=== PATIENT | female | born 1950 | race Caucasian/White ===

== ENCOUNTER 2021-11-01 07:21 | Day surgery (SDC) | payer MEDICARE, SELFPAY ==
--- NOTE | 2021-11-01 | OV_PTH ---
PATIENT: AIXA MONTALVO [place] [facility] [id number] AGE/SX: 71/F ROOM: RE11/01/[address]: Dr. Heike Solis, MDDOB: 1950 BED: DIS: 11/01/2021 SPEC #: [id number] RECD: 11/01/21 14:06 STATUS: ОЛЕГ LUCA #: [id number] EBONY: 11/01/21 00:[address]: Heike Solis DEPT: SURGICAL PATHOLOGY RECD BY: Jose Maria Sheffield ENTERED: 11/01/21 14:06 SP TYPE: OVARY OTHR DR: Dr. Jairo Engel MD Tissues: A - Endometrium, NOS B - Ovary, NOS Procedures: Surgery Specimen Level IV Surgery Specimen Level V HEADER OPERATION: Hysteroscopy, D & C Symphion, Laparoscopic salpingo-oophorectomy PRE-OP DIAGNOSIS: Elevated testosterone levels, endometrial polyp TISSUE SUBMITTED: A ? Endometrial polyp, B ? Bilateral fallopian tubes, ovaries MICROSCOPIC DIAGNOSIS A. Endometrial polyp, D & C: Simple cystic hyperplasia without atypia. B. Bilateral fallopian tubes and ovaries, bilateral salpingo-oophorectomy: Bilateral fallopian tubes - no pathologic diagnosis. One ovary ? mesothelial inclusion cyst. 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 SJ:nancy 11/02/2021 COMMENT Case has been reviewed in consultation with Dr. Montero who concurs with the above diagnosis. IDC:AM MICROSCOPIC DESCRIPTION Slides are reviewed. GROSS DESCRIPTION A - Received in fixative is one container labeled with the patient's name and designated endometrial polyp. The specimen consists of multiple irregular fragments of finnegan-pink soft tissue that in aggregate measure 5 x 3 x 0.3 cm. The specimen is totally submitted in two cassettes. B - Received in fixative is one container labeled with the patient's name and designated bilateral fallopian tubes and ovaries. The specimen consists of bilateral fallopian tubes and ovaries. One of the fallopian tubes show adjacent attached ovary. The second fallopian tube shows separate fallopian tube and ovary. One of the fallopian tubes measure 6 cm in length and 0.5 cm in diameter. The fimbrial end is identified. Tubo-ovarian adhesions are not seen. Sections reveal unremarkable cut surfaces. The adjacent ovary measures 2 x 1.5 x 0.7 cm. Sections reveal unremarkable cut surfaces. The second fallopian tube measures 4.5 cm in length and 0.5 cm in diameter. The fimbrial end is identified. Sections reveal unremarkable cut surfaces. The second ovary measures 2 x 1.5 x 1 cm. Sections reveal unremarkable cut surfaces. A tubular segment of tissue is also noted adjacent to the ovary measuring 1 cm in length and 0.5 cm in diameter. Floral Assistant sections are submitted in four cassettes as follows: 1 & 2 - fallopian tube and adjacent ovary (1 - fallopian tube, 2 - adjacent ovary), 3 - second fallopian tube, 4??second ovary and tubular segment of tissue. / LYNNE:nancy 11/01/2021 TC:1 CPT: 78617 x2, 91719
[2021-11-01 07:53] VITALS: BP 111/55; PULSE 72; RESP 16; TEMP 36.5; O2SAT 99; BMI 33.0
[2021-11-01] MEDS: Lactated Ringers 1,000 ML 15 ML IV (08:17)
--- NOTE | 2021-11-01 09:09 | PCM.PN.BLA ---
Progress Note I have re-examined the patient. There are no clinical changes since date of exam.
[2021-11-01] MEDS: Bupivacaine Mpf 0.5% 30 ML VIAL (09:30)
--- NOTE | 2021-11-01 10:09 | EX.PCM.DISCH ---
Discharge Instructions Procedure Other Diet Discharge Diet: No restrictions Activity May resume sexual activity in: 2 weeks Lifting Restrictions: 20-25 lbs Dressing / Incision Call your doctor if your incision/area has: Continuous Slow Oozing, Sudden Increased Bleeding, Increased Pain/ Swelling, Increased Redness, Foul Smelling Discharge and Swelling at the incision site Call your doctor if you observe: Fever of 101 or Higher, Inability to urinate, Inability to have a bowel movement, Using more than 1 pad per hour and Uncontrolled pain Additional Dressing/Incision Instructions:: You have skin glue over your incision sites, do not pick off. You may shower and let the soap and water run over the incision sites and dab dry. Follow Up Care Please Follow Up With: Heike Solis MD When: 1-2 weeks post OP if you need an appointment please call [phone] Test Results: Test results from this visit will be discussed in further detail at your follow-up appointment, if applicable. Discharge Plan Admission Attending Provider: Heike Solis Primary Care Provider: Jairo Engel Discharge Orders/Prescriptions Prescriptions: No Action Allery Shot 0 mg OTHER TU RF: 0 lisinopril 20 mg Tablet 20 mg PO DAILY RF: 0 lovastatin 40 mg Tablet 40 mg PO QPM RF: 0 pramipexole 0.5 mg Tablet 0.5 mg PO TID RF: 0 citalopram [Celexa] 20 mg Tablet 20 mg PO DAILY RF: 0 calcipotriene 0.005 % Cream 1 applic TOPICAL PRN PRN (Reason: psoriasis) RF: 0 buspirone 10 mg Tablet 10 mg PO BID RF: 0 clotrimazole-betamethasone [Lotrisone] 1-0.05 % Cream 1 applic TOPICAL PRN PRN (Reason: psoriasis) RF: 0 metoprolol tartrate 50 mg Tablet 25 mg PO BID RF: 0 felodipine 10 mg Tablet Extended Release 24 Hr 10 mg PO DAILY RF: 0 furosemide 20 mg Tablet 20 mg PO DAILY RF: 0 carbidopa-levodopa 25-100 mg Tablet 1 tab PO TID RF: 0 cholecalciferol (vitamin D3) [Vitamin D3] 25 mcg (1,000 unit) Capsule 25 mcg PO DAILY RF: 0 magnesium oxide 400 mg magnesium Capsule 400 mg PO BID RF: 0 Probiotic 3 billion cell Capsule 3,000 mmu cells PO DAILY RF: 0 Referrals / Follow Up: Jairo Engel MD [Primary Care Provider] - Disposition Disposition (needs filled in before D/C Order can be placed): Home, Self Care
--- NOTE | 2021-11-01 10:10 | PCM.OPRPT ---
Problems Associated Problem List Diagnoses (1) Endometrial polyp: (2) Elevated testosterone level in female: Report of Operation Date of Procedure: 11/01/21 Pre-Operative Diagnosis: Endometrial polyp, Elevated testosterone levels in female, Post-Operative Diagnosis: same, Fibroid uterus. Surgery/Procedure Performed:: Hysteroscopy, D&C, Polypectomy, Laparoscopic BSO Description of Surgical Findings:: Fundal endometrial polyp, Bilateral ovaries and tubes appear normal. No mass appreciated in Posterior culdesac as demonstrated on MRI Surgeon: Heike Solis nuclear officer: Navarro Duran Type of Anesthesia: General and Local Special Medications: 0.5% marcaine Specimen's removed: bilateral tubes and ovaries , endometrial polyp Drains: none Estimated Blood Loss (mL): 20 Fluids Replaced: 700 Description of Procedure: After informed consent was obtained patient was taken to the operating room she was placed in supine position she was given anesthesia. She was then placed in the [facility] stirrups and she was prepped and draped in normal sterile fashion. Bladder was drained prior to the start of procedure approximately 150cc of clear yellow urine was expelled. At this time attention was turned to the vaginal portion where weighted speculum placed at posterior fornix vagina single-tooth tenaculum was used to gently grasp the internal the cervix. uterus was gently sounded to approximately 10cm. Hysteroscopy performed using normal saline distention medium. Upon hysteroscopy endometrial polyp noted at the fundal aspect. Both tubal ostia were visualized and normal. Otherwise cavity appeared to be normal and atrophic. At this time the symphion resecting device was used to remove the endometrial polyp. At this time hysteroscopy and polypectomy was complete. The scope was removed. Fluid deficit was approximately 100 cc. Uterine manipulator was placed without difficulty. Tenaculum removed. Legs then placed in parallel with the abdomen the tenaculum and the weighted speculum were removed. 2 towel clamps were placed superior to umbilicus. After Marcaine was injected superior to umbilicus a small incision was made and a 5 mm trocar was placed under direct visualization. CO2 gas was used to insufflate the intra-abdominal cavity. Upon inspection no gross abnormalities uterus tubes and ovaries appeared to be normal. No mass noted in posterior culdesac or on rectum noted. small amount of peritoneal free fluid noted. At this time then the LLQ port was placed again Marcaine was injected small incision was made a knife and the 5 mm trocar was placed. this was repeated on right side. At this time then tubes were traced back to the fimbriated ends. ureters were visualized. Ligasure was used to coagulate and ligate along IP ligament, uteroovarian and the mesosalpinx bilaterally until ovaries and tubes removed completely. Good hemostasis was appreciated. The umbilical incision was extended to 10mm port and endocatch bag placed- specimens collected and removed. small oozing noted from uteroovarain pedicle on left- debi placed and Surgicell. good hemostasis appreciated. The rizwan wall was then used to closed fascia of umbilical incision using 0-vicryl sutre. At this time procedure was deemed complete successful. The gas was desufflated on from the intra-abdominal cavity. The trochars were removed. Skin was closed using 4-0 Monocryl in a subcutaneous fashion. Dermabond glue was placed. Instrument lap and needle counts were correct ?2. The uterine manipulator was removed. Vaginal sweep was performed it was negative. There were no complications anticipated normal postoperative course for this patient. Grafts/Implants Used: none Procedure Start Time: 09:30 Procedure Stop Time: 10:15 Complications none Admit VTE Documentation VTE Present on Admission: Yes VTE Mechan Device Prophylaxis: SCD's VTE Pharm Prophylaxis ordered?: No Reason prophylaxis not ordered:: Procedure Not Indicated
[2021-11-01 10:26] VITALS: BP 111/55; BP 128/66; PULSE 79; RESP 16; TEMP 36.6; O2SAT 96
[2021-11-01 10:30] VITALS: BP 111/55; BP 127/74; PULSE 75; RESP 16; O2SAT 93
[2021-11-01 10:45] VITALS: BP 111/55; BP 123/71; PULSE 75; RESP 16; O2SAT 93
[2021-11-01 10:52] VITALS: BP 106/51; BP 111/55; PULSE 75; RESP 16; TEMP 36.3; O2SAT 94
[2021-11-01] MEDS: HYDROcodone Bitartrate/Apap 5/325 Tablet PO (11:20)
[2021-11-01 12:11] VITALS: BP 111/55; BP 114/67; PULSE 74; RESP 16; TEMP 36.6; O2SAT 94
== END 2021-11-01 12:20 | disposition home or self-care (01) ==
LOC: SDC 07:28 → AC 07:28
PROVIDERS: PCP Family Medicine; Referring Provider Obstetrics & Gynecology; Visit Provider Obstetrics & Gynecology
PROC: 0UB98ZZ Excision of Uterus, Via Natural or Artificial Opening Endoscopic (ICD-10-PCS; CPT 58558; principal; 2021-11-01 08:40)
DX: D25.9 Leiomyoma of uterus, unspecified (principal); G20 Parkinson's disease; N18.31 Chronic kidney disease, stage 3a; N85.01 Benign endometrial hyperplasia; N83.299 Other ovarian cyst, unspecified side; I12.9 Hypertensive chronic kidney disease with stage 1 through stage 4 chronic kidney disease, or unspecified chronic kidney disease; K21.9 Gastro-esophageal reflux disease without esophagitis; K58.9 Irritable bowel syndrome, unspecified; E78.00 Pure hypercholesterolemia, unspecified; F32.A Depression, unspecified; F41.9 Anxiety disorder, unspecified; G47.30 Sleep apnea, unspecified; M19.90 Unspecified osteoarthritis, unspecified site; Z79.899 Other long term (current) drug therapy; Z85.828 Personal history of other malignant neoplasm of skin
CPT/HCPCS: 00952; 58558; 58720; 88305; 88307; J7120; J2405